=== PATIENT | female | born 1995 | race Caucasian/White ===

== ENCOUNTER 2019-01-26 20:34 | Outpatient (CLI) | payer MEDICAID | END 2019-01-26 22:15 | disposition home or self-care (01) | LOC: OBT 20:34 → L-D 20:36 → OBT 22:15 | DX: O62.9 Abnormality of forces of labor, unspecified (principal); Z3A.38 38 weeks gestation of pregnancy | CPT/HCPCS: Z7500 ==

== ENCOUNTER 2019-02-12 17:22 | Outpatient (CLI) | payer MEDICAID | END 2019-02-12 21:43 | disposition home or self-care (01) | LOC: OBT 17:22 → L-D 17:23 → OBT 21:43 | DX: O36.8130 Decreased fetal movements, third trimester, not applicable or unspecified (principal); Z3A.37 37 weeks gestation of pregnancy | CPT/HCPCS: 76818 ==

== ENCOUNTER → 2019-02-19 | Outpatient (CLI) | payer MEDICAID ==
[~2019-02-19] MED LIST: BUTORPHANOL 2 MG INJ IV; CARBOPROST 250 MCG INJ IM; IBUPROFEN 600 MG TAB PO; LACTATED RINGER'S 1,000 ML IV; LIDOCAINE 1% (MPF) 30 ML INJ INJ; METHYLERGONOVINE 0.2 MG INJ IM; MISOPROSTOL 200 MCG TAB PR; OXYTOCIN 30 UNITS/LR 500 ML IV
[2019-02-19 17:56] LABS: ADD UMIC YES; UR AMORPHOUS CRYSTAL FEW /HPF (NONE SEEN); UR ASCORBIC ACID NEGATIVE (NEGATIVE); UR BILIRUBIN (Dip) NEGATIVE (NEGATIVE); UR BLOOD (Dip) NEGATIVE (NEGATIVE); UR CLARITY TURBID (CLEAR); UR COLOR YELLOW (YELLOW); UR GLUCOSE (Dip) NEGATIVE (NEGATIVE); UR KETONES (Dip) TRACE mg/dL (NEGATIVE); UR LEUKOCYTE ESTERASE (Dip) TRACE Leu/ul (NEGATIVE); UR MUCUS MODERATE /HPF (NONE SEEN); UR NITRITE (Dip) POSITIVE (NEGATIVE); UR RBC 3 /HPF (0-5); UR SPECIFIC GRAVITY (Dip) 1.027 (1.003-1.030); UR SQUAMOUS EPITHELIAL CELL FEW /HPF (FEW); UR TOTAL PROTEIN (Dip) 1+ mg/dl (NEGATIVE); UR UROBILINOGEN (Dip) NEGATIVE (NEGATIVE); UR WBC 15 /HPF (0-5)
[2019-02-19 21:28] LABS: ADD MAN DIFF? NO
[2019-02-19 21:30] LABS: BASOPHIL # 0.1 10^3/ul (0.0-0.1); BASOPHILS % 0.4 % (0.0-2.0); EOSINOPHILS # 0.2 10^3/ul (0.0-0.5); EOSINOPHILS % 1.2 % (0.0-7.0); HEMATOCRIT 31.7 % (37.0-47.0); HEMOGLOBIN 9.8 g/dl (12.0-16.0); LYMPHOCYTES # 2.1 10^3/ul (0.8-2.9); MEAN CORPUSCULAR HEMOGLOBIN 27.2 pg (29.0-33.0); MEAN CORPUSCULAR HGB CONC 30.9 g/dl (32.0-37.0); MEAN CORPUSCULAR VOLUME 88.1 fl (82.0-101.0); MEAN PLATELET VOLUME 9.9 fl (7.4-10.4); MONOCYTE # 0.7 10^3/ul (0.3-0.9); NEUTROPHIL # 9.8 10^3/ul (1.6-7.5); NEUTROPHILS % 75.5 % (39.0-77.0); PLATELET COUNT 344 10^3/UL (140-415); RED CELL DISTRIBUTION WIDTH 14.9 % (11.5-14.5)
[2019-02-19 21:49] LABS: INR 0.89; PROTIME 12.2 Sec (11.9-14.9)
[2019-02-19 21:50] LABS: PARTIAL THROMBOPLASTIN TIME 28.8 Sec (23.0-35.0)
[2019-02-19] MEDS: LACTATED RINGER'S 1,000 ML IV (21:57)
[2019-02-19] MEDS: AMPICILLIN 2 GM/NS (PMX) 100 ML IV (21:57)
[2019-02-19 22:21] LABS: HEPATITIS B SURFACE ANTIGEN NEGATIVE (NEGATIVE)
[2019-02-20] MEDS: AMPICILLIN 1 GM/NS (PMX) 50 ML IV ×2 (02:09→05:56)
[2019-02-20] MEDS: LACTATED RINGER'S 1,000 ML IV (05:56)
[2019-02-20 16:47] LABS: RAPID PLASMA REAGIN NONREACTIVE (NR)
== END | disposition home or self-care (01) ==
LOC: OBT 13:59 → L-D 22:46 → OBT 20:30 → L-D 20:30
DX: O47.1 False labor at or after 37 completed weeks of gestation (principal); Z3A.38 38 weeks gestation of pregnancy; O26.893 Other specified pregnancy related conditions, third trimester; R10.9 Unspecified abdominal pain
CPT/HCPCS: 36415; 76815; 81001; 85025; 85610; 85730; 86592; 86850; 86900; 86901; 87086; 87340; 96360; 96361; 96374; 96375

== ENCOUNTER 2019-02-26 05:45 | Inpatient (IN) | payer MEDICAID ==
[2019-02-26] MEDS ORDERED: CEFAZOLIN 2 GM/50 ML (PMX) 50 ML IVPB (06:00)
[2019-02-26] MEDS ORDERED: MISOPROSTOL 200 MCG TAB PR ×2 (06:00→09:00)
[2019-02-26] MEDS ORDERED: CARBOPROST 250 MCG INJ IM ×2 (06:00→09:00)
[2019-02-26] MEDS ORDERED: METHYLERGONOVINE 0.2 MG INJ IM ×2 (06:00→09:00)
[2019-02-26] MEDS ORDERED: OXYTOCIN 30 UNITS/LR 500 ML IV ×3 (06:00→09:00)
[2019-02-26 06:44] LABS: ADD MAN DIFF? NO
[2019-02-26] MEDS: LACTATED RINGER'S 1,000 ML IV ×4 (06:46→23:19)
[2019-02-26 06:50] LABS: BASOPHIL # 0.1 10^3/ul (0.0-0.1); BASOPHILS % 0.4 % (0.0-2.0); EOSINOPHILS # 0.1 10^3/ul (0.0-0.5); EOSINOPHILS % 1.2 % (0.0-7.0); HEMATOCRIT 30.2 % (37.0-47.0); HEMOGLOBIN 9.5 g/dl (12.0-16.0); LYMPHOCYTES # 2.1 10^3/ul (0.8-2.9); LYMPHOCYTES % 18.4 % (15.0-51.0); MEAN CORPUSCULAR HEMOGLOBIN 27.3 pg (29.0-33.0); MEAN CORPUSCULAR HGB CONC 31.5 g/dl (32.0-37.0); MEAN CORPUSCULAR VOLUME 86.8 fl (82.0-101.0); MEAN PLATELET VOLUME 10.2 fl (7.4-10.4); MONOCYTE # 0.7 10^3/ul (0.3-0.9); MONOCYTES % 6.3 % (0.0-11.0); NEUTROPHIL # 7.8 10^3/ul (1.6-7.5); NEUTROPHILS % 69.5 % (39.0-77.0); PLATELET COUNT 360 10^3/UL (140-415); RED BLOOD COUNT 3.48 10^6/ul (4.20-5.40); RED CELL DISTRIBUTION WIDTH 15.2 % (11.5-14.5)
[2019-02-26 06:50] LABS: WHITE BLOOD COUNT 11.3 10^3/ul (4.8-10.8)
[2019-02-26 07:08] LABS: PROTIME 12.3 Sec (11.9-14.9)
[2019-02-26 07:09] LABS: PARTIAL THROMBOPLASTIN TIME 26.8 Sec (23.0-35.0)
[2019-02-26] MEDS: CITRIC ACID/NA CITRATE 30 ML CUP PO (07:30)
[2019-02-26] MEDS: ONDANSETRON 4 MG INJ IV (07:30)
[2019-02-26 07:45] LABS: HEPATITIS B SURFACE ANTIGEN NEGATIVE (NEGATIVE)
[2019-02-26] MEDS ORDERED: LIDOCAINE 1% (MPF) 30 ML INJ INJ (09:00)
[2019-02-26] MEDS ORDERED: MISOPROSTOL 50 MCG CAPSULE PO (09:00)
[2019-02-26] MEDS: AMPICILLIN 2 GM/NS (PMX) 100 ML IV (11:23)
[2019-02-26] MEDS: AMPICILLIN 1 GM/NS (PMX) 50 ML IV ×3 (15:35→23:44)
[2019-02-26 16:15] LABS: RAPID PLASMA REAGIN NONREACTIVE (NR)
[2019-02-26] MEDS: OXYTOCIN 30 UNITS/LR 500 ML IV (17:57)
[2019-02-27] MEDS: AMPICILLIN 1 GM/NS (PMX) 50 ML IV ×2 (03:14→08:19)
[2019-02-27] MEDS: BUTORPHANOL 2 MG INJ IV (04:05)
[2019-02-27] MEDS: LACTATED RINGER'S 1,000 ML IV ×2 (07:33→08:19)
[2019-02-27] MEDS ORDERED: FENTAnyl 2MCG/ML-ROPIV 0.2% 100 ML (07:42)
[2019-02-27] MEDS ORDERED: FENTAnyl 2MCG/ML-ROPIV 0.2% 100 ML BAG EPI (09:30)
[2019-02-27] MEDS ORDERED: NALOXONE (0.4 MG/ML) INJ IV (09:30)
[2019-02-27] MEDS ORDERED: DIBUCAINE 1% 30 GM OINT TOP (10:00)
[2019-02-27] MEDS ORDERED: OXYTOCIN 30 UNITS/LR 500 ML IV (10:00)
[2019-02-27] MEDS ORDERED: BENZOCAINE 20% 56 ML SPRAY TOP (10:00)
[2019-02-27] MEDS: OXYTOCIN 30 UNITS/LR 500 ML IV ×3 (10:00→15:09)
[2019-02-27] MEDS ORDERED: SENNA/DOCUSATE NA (8.6MG/50MG) TAB PO (10:00)
[2019-02-27] MEDS ORDERED: MAGNESIUM HYDROXIDE 30ML CUP PO (10:00)
[2019-02-27] MEDS ORDERED: MISOPROSTOL 200 MCG TAB PR (10:00)
[2019-02-27] MEDS ORDERED: WITCH HAZEL/GLYCERIN PAD PR (10:00)
[2019-02-27] MEDS ORDERED: CARBOPROST 250 MCG INJ IM (10:00)
[2019-02-27] MEDS ORDERED: METHYLERGONOVINE 0.2 MG INJ IM (10:00)
[2019-02-27] MEDS ORDERED: ONDANSETRON 4 MG INJ IV (10:00)
[2019-02-27] MEDS ORDERED: ACETAMINOPHEN 325 MG TAB PO ×2 (10:00)
[2019-02-27] MEDS: IBUPROFEN 600 MG TAB PO ×2 (14:12→20:19)
[2019-02-27] MEDS: LANOLIN HPA 1 PKT TOP (14:12)
[2019-02-27] MEDS: LACTATED RINGER'S 1,000 ML IV* ×3 (15:09→23:52)
[2019-02-28 05:00] LABS: ADD MAN DIFF? NO
[2019-02-28 05:10] LABS: WHITE BLOOD COUNT 11.2 10^3/ul (4.8-10.8)
[2019-02-28 05:10] LABS: BASOPHILS % 0.3 % (0.0-2.0); EOSINOPHILS # 0.2 10^3/ul (0.0-0.5); EOSINOPHILS % 1.6 % (0.0-7.0); HEMATOCRIT 29.9 % (37.0-47.0); HEMOGLOBIN 9.2 g/dl (12.0-16.0); LYMPHOCYTES # 2.6 10^3/ul (0.8-2.9); LYMPHOCYTES % 23.4 % (15.0-51.0); MEAN CORPUSCULAR HEMOGLOBIN 26.7 pg (29.0-33.0); MEAN CORPUSCULAR HGB CONC 30.8 g/dl (32.0-37.0); MEAN CORPUSCULAR VOLUME 86.7 fl (82.0-101.0); MEAN PLATELET VOLUME 10.3 fl (7.4-10.4); MONOCYTE # 0.7 10^3/ul (0.3-0.9); MONOCYTES % 6.4 % (0.0-11.0); NEUTROPHIL # 7.4 10^3/ul (1.6-7.5); NEUTROPHILS % 66.3 % (39.0-77.0); PLATELET COUNT 346 10^3/UL (140-415); RED BLOOD COUNT 3.45 10^6/ul (4.20-5.40); RED CELL DISTRIBUTION WIDTH 15.3 % (11.5-14.5)
[2019-02-28] MEDS: IBUPROFEN 600 MG TAB PO ×3 (08:34→23:45)
[2019-02-28] MEDS: LANOLIN HPA 1 PKT TOP (16:58)
[2019-02-28] MEDS: POLYSACCHARIDE IRON COMPLEX CAP PO (21:29)
[2019-02-28] MEDS: DOCUSATE SODIUM 100 MG CAP PO (21:29)
[2019-03-01] MEDS: IBUPROFEN 600 MG TAB PO ×2 (05:30→15:06)
[2019-03-01] MEDS: POLYSACCHARIDE IRON COMPLEX CAP PO (08:59)
[2019-03-01] MEDS: DOCUSATE SODIUM 100 MG CAP PO (08:59)
[2019-03-01 16:56] LABS: ADD MAN DIFF? NO
[2019-03-01 16:57] LABS: WHITE BLOOD COUNT 9.3 10^3/ul (4.8-10.8)
[2019-03-01 16:57] LABS: BASOPHILS % 0.4 % (0.0-2.0); EOSINOPHILS # 0.3 10^3/ul (0.0-0.5); EOSINOPHILS % 2.7 % (0.0-7.0); HEMATOCRIT 32.6 % (37.0-47.0); HEMOGLOBIN 10.1 g/dl (12.0-16.0); LYMPHOCYTES % 21.9 % (15.0-51.0); MEAN CORPUSCULAR HEMOGLOBIN 26.9 pg (29.0-33.0); MEAN CORPUSCULAR VOLUME 86.9 fl (82.0-101.0); MEAN PLATELET VOLUME 9.3 fl (7.4-10.4); MONOCYTE # 0.7 10^3/ul (0.3-0.9); MONOCYTES % 7.2 % (0.0-11.0); NEUTROPHILS % 64.7 % (39.0-77.0); PLATELET COUNT 353 10^3/UL (140-415); RED BLOOD COUNT 3.75 10^6/ul (4.20-5.40); RED CELL DISTRIBUTION WIDTH 15.2 % (11.5-14.5)
== END 2019-03-01 15:35 | disposition home or self-care (01) | DRG 807 ==
LOC: L-D 05:45 → MS1 02-27 12:47 → L-D 10:09
PROVIDERS: Obstetrics & Gynecology
PROC: 10E0XZZ Delivery of Products of Conception, External Approach (ICD-10-PCS; principal; 2019-02-27)
PROC: 3E033VJ Introduction of Other Hormone into Peripheral Vein, Percutaneous Approach (ICD-10-PCS; 2019-02-27)
DX: O99.013 Anemia complicating pregnancy, third trimester (principal); Z37.0 Single live birth; Z3A.39 39 weeks gestation of pregnancy; O99.820 Streptococcus B carrier state complicating pregnancy
CPT/HCPCS: 62322; 85025; 85610; 85730; 86592; 86850; 86900; 86901; 87340